=== PATIENT | female | born 1950 | race Caucasian/White ===

== ENCOUNTER 2022-04-17 17:54 | Inpatient (IN) | payer MEDICARE, BC ==
[2022-04-17] MEDS ORDERED: hydrALAZINE 20 MG/ML VIAL ONE (18:45)
[2022-04-17 19:05] LABS: INR-International Normal Ratio 1.9; Prothrombin Time 22.4 sec (12.0-14.7)
[2022-04-17 19:06] LABS: PTT 36.9 sec (22.9-36.1)
[2022-04-17] MEDS ORDERED: Ondansetron ODT 4 MG TAB PO PRN (22:13)
[2022-04-17] MEDS ORDERED: Acetaminophen 325 MG TAB PO PRN ×2 (22:13→22:30)
[2022-04-17] MEDS ORDERED: hydrALAZINE 20 MG/ML VIAL SLOW IVP PRN ×2 (22:13→22:15)
[2022-04-17] MEDS ORDERED: HumaLOG 300 UNITS/3 ML VIAL SC PRN (22:18)
[2022-04-17] MEDS ORDERED: Dextrose 5% in Water 1,000 ML IV PRN (22:18)
[2022-04-17] MEDS ORDERED: Dextrose 50% Abboject 50 ML SYRINGE SLOW IVP PRN (22:18)
[2022-04-17] MEDS ORDERED: Ondansetron ODT 4 MG TAB SL PRN (22:30)
[2022-04-17] MEDS ORDERED: Ondansetron PF 4 MG/2 ML Vial IVP PRN (22:30)
[2022-04-18 01:46] VITALS: BMI 43.2
[2022-04-18 01:50] LABS: #Eosinphils 0.2 thou/uL (0.0-0.7); #Lymphocytes 1.2 thou/uL (1.20-3.40); #Monocytes 0.5 thou/uL (0.11-0.59); #Neutrophils 3.7 thou/uL (1.40-6.50); %Basophils 0.3 % (0.0-1.0); %Eosinophils 4.4 % (0.0-10.0); %Lymphocytes 21.4 % (21.0-51.0); %Monocytes 8.7 % (0.0-10.0); %Neutrophils 65.1 % (42.0-75.0); Hemoglobin 13.6 g/dL (12.0-16.0); Mean Corpuscular HGB CONC 33.9 g/dL (32.0-36.0); Mean Corpuscular Hemoglobin 30.3 pg (27.0-31.0); Mean Corpuscular Volume 89.3 fL (78.0-98.0); Mean Platelet Volume 8.2 fL (7.4-10.4); Platelet Count 204 thou/uL (130-400); RBC Distribution Width 13.8 % (11.5-14.5); White Blood Cell (WBC) Count 5.6 thou/uL (4.8-10.8)
[2022-04-18 02:40] LABS: Hemoglobin A1c 8.4 % (4.0-6.0)
[2022-04-18 02:43] LABS: Anion Gap 15 mmol/L (10-20); BUN (Urea Nitrogen) 20 mg/dL (9.8-20.1); Calc. Creatinine Clearance 71 mL/min (70-130); Calcium 10.4 mg/dL (7.8-10.44); Carbon Dioxide 28 mmol/L (23-31); Cardiac Risk 3.3 (Less than 4.5); Chloride 99 mmol/L (98-107); Cholesterol 163 mg/dl (< 200 Desired); Estimated GFR 43; Glucose 259 mg/dL (80-115); HDL Cholesterol 50 mg/dL (>60 Neg Risk); LDL Cholesterol, Calculated 80 mg/dL; Magnesium 1.6 mg/dL (1.6-2.6); Potassium 4.2 mmol/L (3.5-5.1); Sodium 138 mmol/L (136-145); Triglycerides 163 mg/dL (Less than 150)
[2022-04-18] MEDS: Aspirin 81 mg Enteric Coated Tablet PO SCH (09:36)
[2022-04-18] MEDS ORDERED: Atorvastatin Calcium 20 MG TAB PO SCH (12:45)
[2022-04-18] MEDS ORDERED: NIFEdipine XL 30 MG TAB PO SCH (12:45)
[2022-04-18] MEDS ORDERED: Morphine 2 MG/ML VIAL SLOW IVP SCH (13:00)
[2022-04-18] MEDS ORDERED: HUMULIN R 100 UNITS in Sodium Chloride 0.9% 100 ML IVPB SCH (13:15)
[2022-04-18] MEDS ORDERED: Insulin Glargine 30 UNITS/0.3 ML VIAL SC SCH ×2 (13:30→20:00)
[2022-04-18] MEDS: HYDROcodone/Acetaminophen 5/325 mg Tablet PO SCH ×3 (13:58→18:05)
[2022-04-18] MEDS ORDERED: Gabapentin 300 MG CAP PO SCH ×2 (15:00)
[2022-04-18] MEDS ORDERED: Acetaminophen 500 MG TAB PO SCH (15:00)
[2022-04-18] MEDS: niCARdipine 25 MG in Sodium Chloride 0.9% 250 ML 250 ML IVPB SCH ×2 (15:33→19:46)
[2022-04-18] MEDS ORDERED: Warfarin Sodium 2.5 MG TAB PO SCH (17:00)
[2022-04-18] MEDS ORDERED: NIFEdipine XL 60 MG TAB PO SCH (21:00)
[2022-04-18] MEDS ORDERED: Rosuvastatin 20 MG TAB PO SCH (21:00)
[2022-04-18] MEDS: Atorvastatin Calcium 40 MG TAB PO SCH (21:00)
[2022-04-18] MEDS: NIFEdipine XL 30 MG TAB PO SCH (21:00)
[2022-04-18] MEDS: HumaLOG 300 UNITS/3 ML VIAL SC PRN (22:35)
[2022-04-19] MEDS: niCARdipine 25 MG in Sodium Chloride 0.9% 250 ML 250 ML IVPB SCH (03:15)
[2022-04-19 04:04] LABS: #Eosinphils 0.1 thou/uL (0.0-0.7); #Lymphocytes 0.9 thou/uL (1.20-3.40); #Monocytes 0.6 thou/uL (0.11-0.59); #Neutrophils 6.4 thou/uL (1.40-6.50); %Basophils 0.4 % (0.0-1.0); %Lymphocytes 11.4 % (21.0-51.0); %Monocytes 7.8 % (0.0-10.0); %Neutrophils 79.4 % (42.0-75.0); Hemoglobin 14.6 g/dL (12.0-16.0); Mean Corpuscular HGB CONC 33.4 g/dL (32.0-36.0); Mean Corpuscular Hemoglobin 29.9 pg (27.0-31.0); Mean Corpuscular Volume 89.5 fL (78.0-98.0); Mean Platelet Volume 8.3 fL (7.4-10.4); Platelet Count 218 thou/uL (130-400); Red Blood Cell (RBC) Count 4.88 mill/uL (4.20-5.40); White Blood Cell (WBC) Count 8.1 thou/uL (4.8-10.8)
[2022-04-19 04:27] LABS: Anion Gap 20 mmol/L (10-20); BUN (Urea Nitrogen) 30 mg/dL (9.8-20.1); Calc. Creatinine Clearance 56 mL/min (70-130); Calcium 9.7 mg/dL (7.8-10.44); Carbon Dioxide 23 mmol/L (23-31); Chloride 101 mmol/L (98-107); Estimated GFR 32; Glucose 365 mg/dL (80-115); Potassium 4.8 mmol/L (3.5-5.1); Sodium 139 mmol/L (136-145)
[2022-04-19] MEDS: HumaLOG 300 UNITS/3 ML VIAL SC PRN (04:34)
[2022-04-19 04:49] LABS: Prothrombin Time 22.7 sec (12.0-14.7)
[2022-04-19] MEDS ORDERED: HumaLOG 300 UNITS/3 ML VIAL SC PRN (08:49)
[2022-04-19] MEDS ORDERED: Dextrose 5% in Water 1,000 ML IV PRN (08:49)
[2022-04-19] MEDS ORDERED: Dextrose 50% Abboject 50 ML SYRINGE SLOW IVP PRN (08:49)
[2022-04-19] MEDS ORDERED: Insulin Glargine 30 UNITS/0.3 ML VIAL SC SCH ×4 (09:00→21:00)
[2022-04-19] MEDS ORDERED: Bupropion 150 MG XL TAB PO SCH (09:00)
[2022-04-19] MEDS ORDERED: Enoxaparin Sodium 40 MG/0.4 ML SYRINGE SC SCH (10:15)
[2022-04-19 10:22] LABS: Prothrombin Time 23.3 sec (12.0-14.7)
[2022-04-19 10:48] LABS: ALT (SGPT) 7 U/L (8-55); AST (SGOT) 9 U/L (5-34); Albumin 4.1 g/dL (3.4-4.8); Alkaline Phosphatase 101 U/L (40-110); Bilirubin, Direct 0.3 mg/dL (0.1-0.3); Bilirubin, Total 0.7 mg/dL (0.2-1.2); Protein, Total 7.8 g/dL (5.8-8.1)
[2022-04-19] MEDS: Aspirin 81 mg Enteric Coated Tablet PO SCH (10:50)
[2022-04-19] MEDS ORDERED: Midazolam HCl 2 mg/2 ml Vial ONE (11:03)
[2022-04-19] MEDS ORDERED: Midazolam HCl 2 mg/2 ml Vial SLOW IVP SCH (11:30)
[2022-04-19] MEDS: Lactated Ringer's 1,000 ML IV SCH ×2 (11:45→18:38)
[2022-04-19] MEDS ORDERED: levETIRAcetam 500 MG/5 ML VIAL SLOW IVP SCH (12:00)
[2022-04-19] MEDS: NIFEdipine XL 30 MG TAB PO SCH (12:02)
[2022-04-19] MEDS ORDERED: HUMULIN R 100 UNITS in Sodium Chloride 0.9% 100 ML IVPB SCH (13:15)
[2022-04-19] MEDS ORDERED: Midazolam HCl 2 mg/2 ml Vial SLOW IVP PRN (14:56)
[2022-04-19] MEDS: Carvedilol 6.25 MG TAB PO SCH (17:42)
[2022-04-19 17:49] LABS: Glucose 145 mg/dL (80-115)
[2022-04-19] MEDS: Atorvastatin Calcium 40 MG TAB PO SCH (20:15)
[2022-04-19 21:02] LABS: Anion Gap 17 mmol/L (10-20); BUN (Urea Nitrogen) 42 mg/dL (9.8-20.1); Calc. Creatinine Clearance 53 mL/min (70-130); Calcium 9.4 mg/dL (7.8-10.44); Carbon Dioxide 25 mmol/L (23-31); Chloride 105 mmol/L (98-107); Estimated GFR 30; Glucose 134 mg/dL (80-115); Potassium 4.5 mmol/L (3.5-5.1); Sodium 142 mmol/L (136-145)
[2022-04-19] MEDS: levETIRAcetam 500 MG/5 ML VIAL SLOW IVP SCH (21:08)
[2022-04-20 00:04] LABS: Anion Gap 16 mmol/L (10-20); BUN (Urea Nitrogen) 43 mg/dL (9.8-20.1); Calc. Creatinine Clearance 57 mL/min (70-130); Calcium 9.4 mg/dL (7.8-10.44); Carbon Dioxide 23 mmol/L (23-31); Chloride 107 mmol/L (98-107); Estimated GFR 32; Glucose 93 mg/dL (80-115); Sodium 142 mmol/L (136-145)
[2022-04-20] MEDS: Lactated Ringer's 1,000 ML IV SCH (02:31)
[2022-04-20 04:23] LABS: #Eosinphils 0.1 thou/uL (0.0-0.7); #Lymphocytes 1.6 thou/uL (1.20-3.40); #Monocytes 0.6 thou/uL (0.11-0.59); #Neutrophils 5.3 thou/uL (1.40-6.50); %Basophils 0.2 % (0.0-1.0); %Eosinophils 1.9 % (0.0-10.0); %Lymphocytes 20.5 % (21.0-51.0); %Monocytes 7.8 % (0.0-10.0); %Neutrophils 69.6 % (42.0-75.0); Hemoglobin 12.3 g/dL (12.0-16.0); Mean Corpuscular HGB CONC 32.8 g/dL (32.0-36.0); Mean Corpuscular Hemoglobin 29.8 pg (27.0-31.0); Mean Corpuscular Volume 90.9 fL (78.0-98.0); Mean Platelet Volume 8.3 fL (7.4-10.4); Platelet Count 208 thou/uL (130-400); RBC Distribution Width 14.1 % (11.5-14.5); Red Blood Cell (RBC) Count 4.14 mill/uL (4.20-5.40); White Blood Cell (WBC) Count 7.6 thou/uL (4.8-10.8)
[2022-04-20 04:31] LABS: INR-International Normal Ratio 2.4; Prothrombin Time 26.5 sec (12.0-14.7)
[2022-04-20 05:14] LABS: Anion Gap 18 mmol/L (10-20); BUN (Urea Nitrogen) 43 mg/dL (9.8-20.1); Calc. Creatinine Clearance 61 mL/min (70-130); Calcium 9.3 mg/dL (7.8-10.44); Carbon Dioxide 21 mmol/L (23-31); Chloride 106 mmol/L (98-107); Estimated GFR 34; Glucose 159 mg/dL (80-115); Sodium 141 mmol/L (136-145)
[2022-04-20] MEDS: niCARdipine 25 MG in Sodium Chloride 0.9% 250 ML 250 ML IVPB SCH ×2 (06:32→16:27)
[2022-04-20] MEDS ORDERED: Lactated Ringer's 1,000 ML IV SCH (08:14)
[2022-04-20] MEDS ORDERED: hydrALAZINE 20 MG/ML VIAL SLOW IVP PRN (08:41)
[2022-04-20] MEDS: Enoxaparin Sodium 40 MG/0.4 ML SYRINGE SC SCH (09:24)
[2022-04-20] MEDS: Carvedilol 6.25 MG TAB PO SCH ×2 (09:26→17:46)
[2022-04-20] MEDS: Aspirin 81 mg Enteric Coated Tablet PO SCH (09:26)
[2022-04-20] MEDS: Lactated Ringer's 500 ML IV SCH ×2 (09:26→14:11)
[2022-04-20] MEDS: levETIRAcetam 500 MG/5 ML VIAL SLOW IVP SCH ×2 (09:27→20:40)
[2022-04-20 11:22] LABS: Anion Gap 19 mmol/L (10-20); BUN (Urea Nitrogen) 41 mg/dL (9.8-20.1); Calc. Creatinine Clearance 65 mL/min (70-130); Calcium 9.5 mg/dL (7.8-10.44); Carbon Dioxide 21 mmol/L (23-31); Chloride 106 mmol/L (98-107); Estimated GFR 37; Glucose 218 mg/dL (80-115); Potassium 4.2 mmol/L (3.5-5.1); Sodium 142 mmol/L (136-145)
[2022-04-20] MEDS: NPH, Human Insulin Isophane 300 UNIT/3 ML VIAL SC SCH ×2 (12:13→17:46)
[2022-04-20] MEDS: hydrALAZINE 20 MG/ML VIAL SLOW IVP PRN (14:52)
[2022-04-20] MEDS: Atorvastatin Calcium 40 MG TAB PO SCH (20:40)
[2022-04-21] MEDS: NPH, Human Insulin Isophane 300 UNIT/3 ML VIAL SC SCH ×4 (00:19→18:39)
[2022-04-21] MEDS: hydrALAZINE 20 MG/ML VIAL SLOW IVP PRN ×2 (01:12→09:18)
[2022-04-21] MEDS: niCARdipine 25 MG in Sodium Chloride 0.9% 250 ML 250 ML IVPB SCH ×5 (02:37→22:27)
[2022-04-21 03:53] LABS: INR-International Normal Ratio 2.1; Prothrombin Time 23.7 sec (12.0-14.7)
[2022-04-21 03:58] LABS: #Eosinphils 0.3 thou/uL (0.0-0.7); #Lymphocytes 1.1 thou/uL (1.20-3.40); #Monocytes 0.8 thou/uL (0.11-0.59); #Neutrophils 6.1 thou/uL (1.40-6.50); %Basophils 0.2 % (0.0-1.0); %Eosinophils 3.9 % (0.0-10.0); %Lymphocytes 13.3 % (21.0-51.0); %Monocytes 9.9 % (0.0-10.0); %Neutrophils 72.7 % (42.0-75.0); Hemoglobin 12.9 g/dL (12.0-16.0); Mean Corpuscular HGB CONC 31.4 g/dL (32.0-36.0); Mean Corpuscular Hemoglobin 28.3 pg (27.0-31.0); Mean Corpuscular Volume 90.3 fL (78.0-98.0); Mean Platelet Volume 9.5 fL (7.4-10.4); Platelet Count 158 thou/uL (130-400); RBC Distribution Width 14.2 % (11.5-14.5); Red Blood Cell (RBC) Count 4.54 mill/uL (4.20-5.40); White Blood Cell (WBC) Count 8.4 thou/uL (4.8-10.8)
[2022-04-21 07:15] LABS: ALT (SGPT) 7 U/L (8-55); AST (SGOT) 11 U/L (5-34); Albumin 3.9 g/dL (3.4-4.8); Alkaline Phosphatase 85 U/L (40-110); Bilirubin, Direct 0.2 mg/dL (0.1-0.3); Bilirubin, Total 0.4 mg/dL (0.2-1.2); Protein, Total 7.3 g/dL (5.8-8.1)
[2022-04-21] MEDS: Carvedilol 6.25 MG TAB PO SCH ×2 (08:59→17:20)
[2022-04-21] MEDS: Enoxaparin Sodium 40 MG/0.4 ML SYRINGE SC SCH (09:20)
[2022-04-21] MEDS: levETIRAcetam 500 MG/5 ML VIAL SLOW IVP SCH ×2 (09:20→20:58)
[2022-04-21] MEDS: Aspirin 81 mg Enteric Coated Tablet PO SCH (09:26)
[2022-04-21] MEDS: Atorvastatin Calcium 40 MG TAB PO SCH (20:57)
[2022-04-22] MEDS: NPH, Human Insulin Isophane 300 UNIT/3 ML VIAL SC SCH ×3 (00:55→13:40)
[2022-04-22] MEDS: niCARdipine 25 MG in Sodium Chloride 0.9% 250 ML 250 ML IVPB SCH ×2 (02:06→06:51)
[2022-04-22 04:11] LABS: INR-International Normal Ratio 2.6; Prothrombin Time 28.4 sec (12.0-14.7)
[2022-04-22 05:19] LABS: #Eosinphils 0.6 thou/uL (0.0-0.7); #Lymphocytes 0.9 thou/uL (1.20-3.40); #Monocytes 0.6 thou/uL (0.11-0.59); #Neutrophils 6.2 thou/uL (1.40-6.50); %Basophils 0.2 % (0.0-1.0); %Eosinophils 7.5 % (0.0-10.0); %Lymphocytes 10.8 % (21.0-51.0); %Monocytes 7.6 % (0.0-10.0); Mean Corpuscular HGB CONC 32.1 g/dL (32.0-36.0); Mean Corpuscular Hemoglobin 29.5 pg (27.0-31.0); Mean Platelet Volume 8.6 fL (7.4-10.4); Platelet Count 201 thou/uL (130-400); Red Blood Cell (RBC) Count 4.42 mill/uL (4.20-5.40); White Blood Cell (WBC) Count 8.3 thou/uL (4.8-10.8)
[2022-04-22 05:44] LABS: Calcium 9.2 mg/dL (7.8-10.44); Chloride 114 mmol/L (98-107); Potassium 4.1 mmol/L (3.5-5.1); Sodium 148 mmol/L (136-145)
[2022-04-22 05:45] LABS: Glucose 95 mg/dL (80-115)
[2022-04-22 05:46] LABS: Anion Gap 16 mmol/L (10-20); Carbon Dioxide 22 mmol/L (23-31)
[2022-04-22 05:48] LABS: Calc. Creatinine Clearance 77 mL/min (70-130); Estimated GFR 46
[2022-04-22 05:49] LABS: BUN (Urea Nitrogen) 42 mg/dL (9.8-20.1)
[2022-04-22] MEDS: Aspirin Chewable 81 MG TAB PO SCH (08:11)
[2022-04-22] MEDS: Carvedilol 6.25 MG TAB PO SCH ×2 (08:11→16:42)
[2022-04-22] MEDS: Enoxaparin Sodium 40 MG/0.4 ML SYRINGE SC SCH (08:11)
[2022-04-22] MEDS: levETIRAcetam 500 MG/5 ML VIAL SLOW IVP SCH ×2 (08:11→22:21)
[2022-04-22] MEDS ORDERED: HumaLOG 300 UNITS/3 ML VIAL SC PRN (15:39)
[2022-04-22] MEDS: HumaLOG 300 UNITS/3 ML VIAL SC PRN (16:42)
[2022-04-22] MEDS: Atorvastatin Calcium 40 MG TAB PO SCH (22:22)
[2022-04-22] MEDS: Insulin Glargine 30 UNITS/0.3 ML VIAL SC SCH (22:22)
[2022-04-22] MEDS: Famotidine 20 MG TAB PO SCH (22:22)
[2022-04-23] MEDS: hydrALAZINE 20 MG/ML VIAL SLOW IVP PRN ×2 (00:25→09:02)
[2022-04-23] MEDS ORDERED: hydrALAZINE 20 MG/ML VIAL SLOW IVP SCH (02:30)
[2022-04-23 04:57] LABS: #Eosinphils 0.9 thou/uL (0.0-0.7); #Lymphocytes 1.1 thou/uL (1.20-3.40); #Monocytes 0.6 thou/uL (0.11-0.59); #Neutrophils 4.6 thou/uL (1.40-6.50); %Basophils 0.3 % (0.0-1.0); %Eosinophils 12.1 % (0.0-10.0); %Lymphocytes 15.4 % (21.0-51.0); %Monocytes 8.2 % (0.0-10.0); Hemoglobin 11.6 g/dL (12.0-16.0); Mean Corpuscular HGB CONC 32.4 g/dL (32.0-36.0); Mean Corpuscular Hemoglobin 29.5 pg (27.0-31.0); Mean Corpuscular Volume 91.1 fL (78.0-98.0); Mean Platelet Volume 8.7 fL (7.4-10.4); Platelet Count 186 thou/uL (130-400); RBC Distribution Width 13.6 % (11.5-14.5); Red Blood Cell (RBC) Count 3.94 mill/uL (4.20-5.40); White Blood Cell (WBC) Count 7.2 thou/uL (4.8-10.8)
[2022-04-23 05:04] LABS: INR-International Normal Ratio 2.5; Prothrombin Time 27.6 sec (12.0-14.7)
[2022-04-23 05:06] LABS: ALT (SGPT) 11 U/L (8-55); AST (SGOT) 13 U/L (5-34); Albumin 3.5 g/dL (3.4-4.8); Alkaline Phosphatase 92 U/L (40-110); Anion Gap 15 mmol/L (10-20); BUN (Urea Nitrogen) 34 mg/dL (9.8-20.1); Bilirubin, Direct 0.2 mg/dL (0.1-0.3); Bilirubin, Total 0.6 mg/dL (0.2-1.2); Calc. Creatinine Clearance 82 mL/min (70-130); Calcium 8.9 mg/dL (7.8-10.44); Carbon Dioxide 21 mmol/L (23-31); Chloride 105 mmol/L (98-107); Estimated GFR 50; Glucose 94 mg/dL (80-115); Potassium 3.7 mmol/L (3.5-5.1); Protein, Total 6.5 g/dL (5.8-8.1); Sodium 137 mmol/L (136-145)
[2022-04-23] MEDS: Famotidine 20 MG TAB PO SCH ×2 (09:01→22:02)
[2022-04-23] MEDS: levETIRAcetam 500 MG/5 ML VIAL SLOW IVP SCH ×2 (09:01→22:02)
[2022-04-23] MEDS: Carvedilol 6.25 MG TAB PO SCH ×2 (09:01→17:40)
[2022-04-23] MEDS: Enoxaparin Sodium 40 MG/0.4 ML SYRINGE SC SCH (09:01)
[2022-04-23] MEDS: Insulin Glargine 30 UNITS/0.3 ML VIAL SC SCH ×2 (09:02→22:02)
[2022-04-23] MEDS: Aspirin Chewable 81 MG TAB PO SCH (09:02)
[2022-04-23] MEDS ORDERED: Acetaminophen 500 MG TAB PO PRN (11:29)
[2022-04-23 11:32] LABS: Glucose 122 mg/dL (80-115)
[2022-04-23] MEDS ORDERED: Allopurinol 300 MG TAB PO SCH (13:45)
[2022-04-23] MEDS: HumaLOG 300 UNITS/3 ML VIAL SC PRN (17:40)
[2022-04-23] MEDS: Atorvastatin Calcium 40 MG TAB PO SCH (22:02)
[2022-04-24] MEDS: hydrALAZINE 20 MG/ML VIAL SLOW IVP PRN ×3 (04:13→23:30)
[2022-04-24 04:32] LABS: #Eosinphils 0.7 thou/uL (0.0-0.7); #Lymphocytes 1.3 thou/uL (1.20-3.40); #Monocytes 0.5 thou/uL (0.11-0.59); #Neutrophils 3.3 thou/uL (1.40-6.50); %Basophils 0.2 % (0.0-1.0); %Eosinophils 11.7 % (0.0-10.0); %Lymphocytes 21.9 % (21.0-51.0); %Monocytes 9.4 % (0.0-10.0); %Neutrophils 56.8 % (42.0-75.0); Hemoglobin 11.5 g/dL (12.0-16.0); Mean Corpuscular HGB CONC 32.2 g/dL (32.0-36.0); Mean Corpuscular Hemoglobin 29.7 pg (27.0-31.0); Mean Corpuscular Volume 92.2 fL (78.0-98.0); Mean Platelet Volume 9.1 fL (7.4-10.4); Platelet Count 185 thou/uL (130-400); RBC Distribution Width 13.3 % (11.5-14.5); Red Blood Cell (RBC) Count 3.87 mill/uL (4.20-5.40); White Blood Cell (WBC) Count 5.7 thou/uL (4.8-10.8)
[2022-04-24 04:42] LABS: INR-International Normal Ratio 1.4; Prothrombin Time 17.2 sec (12.0-14.7)
[2022-04-24 05:08] LABS: Anion Gap 15 mmol/L (10-20); BUN (Urea Nitrogen) 31 mg/dL (9.8-20.1); Calc. Creatinine Clearance 70 mL/min (70-130); Calcium 9.1 mg/dL (7.8-10.44); Carbon Dioxide 21 mmol/L (23-31); Chloride 105 mmol/L (98-107); Estimated GFR 41; Glucose 219 mg/dL (80-115); Sodium 137 mmol/L (136-145)
[2022-04-24] MEDS: HumaLOG 300 UNITS/3 ML VIAL SC PRN ×2 (05:53→16:47)
[2022-04-24] MEDS ORDERED: Lisinopril 10 MG TAB PO SCH (09:00)
[2022-04-24] MEDS: Famotidine 20 MG TAB PO SCH ×2 (09:22→20:37)
[2022-04-24] MEDS: Carvedilol 6.25 MG TAB PO SCH ×2 (09:22→16:49)
[2022-04-24] MEDS: Aspirin Chewable 81 MG TAB PO SCH (09:22)
[2022-04-24] MEDS: Allopurinol 300 MG TAB PO SCH (09:23)
[2022-04-24] MEDS: Insulin Glargine 30 UNITS/0.3 ML VIAL SC SCH ×2 (09:23→20:37)
[2022-04-24] MEDS: Enoxaparin Sodium 40 MG/0.4 ML SYRINGE SC SCH (09:23)
[2022-04-24] MEDS: levETIRAcetam 500 MG/5 ML VIAL SLOW IVP SCH (10:34)
[2022-04-24] MEDS: predniSONE 20 MG TAB PO SCH (10:35)
[2022-04-24] MEDS ORDERED: traMADol HCl 50 MG TAB PO PRN (16:32)
[2022-04-24] MEDS: Atorvastatin Calcium 40 MG TAB PO SCH (20:37)
[2022-04-24] MEDS: levETIRAcetam 500 MG TAB PO SCH (20:37)
[2022-04-25 04:34] LABS: #Eosinphils 0.1 thou/uL (0.0-0.7); #Lymphocytes 0.8 thou/uL (1.20-3.40); #Monocytes 0.4 thou/uL (0.11-0.59); #Neutrophils 3.8 thou/uL (1.40-6.50); %Basophils 0.3 % (0.0-1.0); %Eosinophils 1.2 % (0.0-10.0); %Lymphocytes 16.1 % (21.0-51.0); %Monocytes 7.4 % (0.0-10.0); Hemoglobin 11.3 g/dL (12.0-16.0); Mean Corpuscular HGB CONC 33.2 g/dL (32.0-36.0); Mean Corpuscular Hemoglobin 30.2 pg (27.0-31.0); Mean Corpuscular Volume 91.1 fL (78.0-98.0); Mean Platelet Volume 9.1 fL (7.4-10.4); Platelet Count 205 thou/uL (130-400); RBC Distribution Width 13.2 % (11.5-14.5); Red Blood Cell (RBC) Count 3.73 mill/uL (4.20-5.40); White Blood Cell (WBC) Count 5.1 thou/uL (4.8-10.8)
[2022-04-25 04:57] LABS: Anion Gap 14 mmol/L (10-20); BUN (Urea Nitrogen) 32 mg/dL (9.8-20.1); Calc. Creatinine Clearance 66 mL/min (70-130); Carbon Dioxide 22 mmol/L (23-31); Chloride 101 mmol/L (98-107); Estimated GFR 39; Glucose 385 mg/dL (80-115); Potassium 4.6 mmol/L (3.5-5.1); Sodium 132 mmol/L (136-145)
[2022-04-25 05:01] LABS: INR-International Normal Ratio 1.1; Prothrombin Time 14.2 sec (12.0-14.7)
[2022-04-25] MEDS: HumaLOG 300 UNITS/3 ML VIAL SC PRN ×2 (06:07→13:13)
[2022-04-25] MEDS ORDERED: Lisinopril 10 MG TAB PO SCH (08:03)
[2022-04-25] MEDS: Enoxaparin Sodium 40 MG/0.4 ML SYRINGE SC SCH (08:43)
[2022-04-25] MEDS: levETIRAcetam 500 MG TAB PO SCH (08:43)
[2022-04-25] MEDS: Insulin Glargine 30 UNITS/0.3 ML VIAL SC SCH (08:43)
[2022-04-25] MEDS: Allopurinol 300 MG TAB PO SCH (08:44)
[2022-04-25] MEDS: Famotidine 20 MG TAB PO SCH (08:44)
[2022-04-25] MEDS: Carvedilol 6.25 MG TAB PO SCH (08:45)
[2022-04-25] MEDS: Aspirin Chewable 81 MG TAB PO SCH (08:45)
[2022-04-25] MEDS ORDERED: Amlodipine 5 MG TAB PO SCH (09:00)
[2022-04-25] MEDS ORDERED: Lisinopril 20 MG TAB PO SCH (09:00)
[2022-04-25] MEDS: predniSONE 20 MG TAB PO SCH (09:33)
[2022-04-25 11:51] VITALS: BP 148/65; TEMP 97.8
== END 2022-04-25 13:24 | DRG 71 ==
LOC: ERS 17:54 → ERHOLD 19:09 → NEURO 22:04 → OBSVTOIN 04-18 13:09 → CCU 04-18 15:11 → 2NO 04-22 20:25
PROVIDERS: ADMIT Internal Medicine; ATTEND Family Medicine
DX: G93.41 Metabolic encephalopathy (principal); I13.0 Hypertensive heart and chronic kidney disease with heart failure and stage 1 through stage 4 chronic kidney disease, or unspecified chronic kidney disease; I16.1 Hypertensive emergency; N18.4 Chronic kidney disease, stage 4 (severe); J96.11 Chronic respiratory failure with hypoxia; I50.22 Chronic systolic (congestive) heart failure; I42.9 Cardiomyopathy, unspecified; E78.5 Hyperlipidemia, unspecified; I48.91 Unspecified atrial fibrillation; F32.A Depression, unspecified; J44.9 Chronic obstructive pulmonary disease, unspecified; G89.29 Other chronic pain; E11.22 Type 2 diabetes mellitus with diabetic chronic kidney disease; E11.65 Type 2 diabetes mellitus with hyperglycemia; I12.9 Hypertensive chronic kidney disease with stage 1 through stage 4 chronic kidney disease, or unspecified chronic kidney disease; I25.10 Atherosclerotic heart disease of native coronary artery without angina pectoris; E11.40 Type 2 diabetes mellitus with diabetic neuropathy, unspecified; M10.9 Gout, unspecified; T42.6X5A Adverse effect of other antiepileptic and sedative-hypnotic drugs, initial encounter; T42.8X5A Adverse effect of antiparkinsonism drugs and other central muscle-tone depressants, initial encounter; R56.9 Unspecified convulsions; F03.90 Unspecified dementia, unspecified severity, without behavioral disturbance, psychotic disturbance, mood disturbance, and anxiety; Z96.653 Presence of artificial knee joint, bilateral; Z79.899 Other long term (current) drug therapy; I25.2 Old myocardial infarction; Z99.81 Dependence on supplemental oxygen; Z86.73 Personal history of transient ischemic attack (TIA), and cerebral infarction without residual deficits; Z87.440 Personal history of urinary (tract) infections; Z88.2 Allergy status to sulfonamides; Z95.5 Presence of coronary angioplasty implant and graft; Z95.1 Presence of aortocoronary bypass graft; Z98.1 Arthrodesis status; Z98.890 Other specified postprocedural states; Z82.49 Family history of ischemic heart disease and other diseases of the circulatory system; Z87.891 Personal history of nicotine dependence; Z79.4 Long term (current) use of insulin; Z86.16 Personal history of COVID-19
CPT/HCPCS: 36415; 36416; 70450; 80048; 80061; 80076; 82140; 82947; 83036; 83735; 84443; 84484; 85025; 85610; 93306; 93880; 95712; 95816; 95819; 95957; 96374; 96376; G0378; J0360; J1650; J1815; J1953; J2250; J2270; J7050; J7120; J7512; U0003; U0005

== ENCOUNTER 2022-05-06 14:50 | Inpatient (IN) | payer MEDICARE, BC ==
[2022-05-06 15:26] LABS: #Eosinphils 0.2 thou/uL (0.0-0.7); #Lymphocytes 1.4 thou/uL (1.20-3.40); #Monocytes 0.4 thou/uL (0.11-0.59); #Neutrophils 4.4 thou/uL (1.40-6.50); %Basophils 0.3 % (0.0-1.0); %Lymphocytes 22.1 % (21.0-51.0); %Monocytes 6.5 % (0.0-10.0); Hemoglobin 13.5 g/dL (12.0-16.0); Mean Corpuscular HGB CONC 33.3 g/dL (32.0-36.0); Mean Corpuscular Hemoglobin 29.8 pg (27.0-31.0); Mean Corpuscular Volume 89.3 fL (78.0-98.0); Mean Platelet Volume 9.1 fL (7.4-10.4); Platelet Count 193 thou/uL (130-400); RBC Distribution Width 12.7 % (11.5-14.5); Red Blood Cell (RBC) Count 4.53 mill/uL (4.20-5.40); White Blood Cell (WBC) Count 6.5 thou/uL (4.8-10.8)
[2022-05-06 15:50] LABS: ALT (SGPT) 15 U/L (8-55); AST (SGOT) 13 U/L (5-34); Acetaminophen Less than 10.0 mcg/mL (10.0-30.0); Albumin 4.1 g/dL (3.4-4.8); Alcohol Less than 10 mg/dL (Less than 10); Alkaline Phosphatase 98 U/L (40-110); Anion Gap 18 mmol/L (10-20); BUN (Urea Nitrogen) 21 mg/dL (9.8-20.1); Bilirubin, Total 0.9 mg/dL (0.2-1.2); Calc. Creatinine Clearance 0 mL/min (70-130); Carbon Dioxide 26 mmol/L (23-31); Chloride 95 mmol/L (98-107); Estimated GFR 39; Globulin 3.5 g/dL (2.4-3.5); Glucose 429 mg/dL (80-115); Magnesium 1.3 mg/dL (1.6-2.6); Potassium 4.8 mmol/L (3.5-5.1); Protein, Total 7.6 g/dL (5.8-8.1); Salicylate Less than 8.0 mg/dL (15.0-30.0); Sodium 134 mmol/L (136-145)
[2022-05-06 15:52] LABS: Phosphorus 3.1 mg/dL (2.3-4.7)
[2022-05-06 16:33] LABS: CKMB 2.5 ng/mL (0-6.6)
[2022-05-06 16:34] LABS: INR-International Normal Ratio 1.1; Prothrombin Time 13.8 sec (12.0-14.7)
[2022-05-06] MEDS ORDERED: Magnesium 2 GM/50 ML BAG (IN WATER) ONE (16:58)
[2022-05-06 16:59] LABS: Bacteria/HPF None Seen HPF (None Seen); Bilirubin Negative (Negative); Blood, Urine Negative (Negative); Clarity Clear (Clear); Glucose, Urine (Dipstick) Greater than 1000 mg/dL (Negative); Ketone, Urine Negative (Negative); Leukocyte Negative Leu/uL (Negative); Nitrite Negative (Negative); Protein, Urine (Dipstick) 100 mg/dL (Neg-Trace); RBC/HPF 0-3 HPF (0-3); Specific Gravity, Urine 1.024 (1.002-1.036); Squamous Epithelial None Seen HPF (0-3); Urobilinogen Normal mg/dL (Less than 2); WBC/HPF 0-3 HPF (0-3)
[2022-05-06 17:07] LABS: Amphetamine Not Detected (NotDetected); Barbiturates Screen Not Detected (NotDetected); Benzodiazepine Screen Not Detected (NotDetected); Cocaine Metabolite Screen Not Detected (NotDetected); Methadone Not Detected (NotDetected); Methamphetamine Not Detected (NotDetected); Opiate Screen Not Detected (NotDetected); Oxycodone Screen Not Detected (NotDetected); Phencyclidine (PCP) Not Detected (NotDetected); THC/Cannabinoid Screen Not Detected (NotDetected); Tricyclic Screen Detected (NotDetected)
[2022-05-06] MEDS ORDERED: hydrALAZINE 20 MG/ML VIAL ONE (17:48)
[2022-05-06 17:59] LABS: SARS-CoV-2 NAA Rapid Test Not Detected (NotDetected)
[2022-05-06] MEDS ORDERED: Insulin Glargine 30 UNITS/0.3 ML VIAL SC SCH (18:30)
[2022-05-06] MEDS ORDERED: levETIRAcetam 500 MG/5 ML VIAL ONE (20:56)
[2022-05-07] MEDS ORDERED: Dextrose 5% in Water 1,000 ML IV PRN (04:15)
[2022-05-07] MEDS ORDERED: HumaLOG 300 UNITS/3 ML VIAL SC PRN (04:15)
[2022-05-07] MEDS ORDERED: Dextrose 50% Abboject 50 ML SYRINGE SLOW IVP PRN (04:15)
[2022-05-07] MEDS ORDERED: hydrALAZINE 20 MG/ML VIAL SLOW IVP PRN (04:16)
[2022-05-07] MEDS ORDERED: hydrALAZINE 20 MG/ML VIAL ONE (04:42)
[2022-05-07] MEDS: HumaLOG 300 UNITS/3 ML VIAL SC PRN ×4 (04:45→17:33)
[2022-05-07] MEDS ORDERED: Electrolyte Replacement Protocol 1 EACH FS SCH (05:00)
[2022-05-07] MEDS ORDERED: Acetaminophen 650 MG Suppository PR PRN (05:12)
[2022-05-07] MEDS ORDERED: Ondansetron ODT 4 MG TAB PO PRN (05:12)
[2022-05-07] MEDS ORDERED: Acetaminophen 325 MG TAB PO PRN (05:12)
[2022-05-07] MEDS ORDERED: Ondansetron PF 4 MG/2 ML Vial IVP PRN (05:12)
[2022-05-07 05:16] VITALS: BMI 39.4
[2022-05-07 05:55] LABS: Anion Gap 17 mmol/L (10-20); BUN (Urea Nitrogen) 20 mg/dL (9.8-20.1); Calc. Creatinine Clearance 63 mL/min (70-130); Calcium 9.8 mg/dL (7.8-10.44); Carbon Dioxide 26 mmol/L (23-31); Chloride 97 mmol/L (98-107); Estimated GFR 40; Glucose 407 mg/dL (80-115); Magnesium 1.8 mg/dL (1.6-2.6); Potassium 4.2 mmol/L (3.5-5.1); Sodium 136 mmol/L (136-145)
[2022-05-07] MEDS ORDERED: Insulin Glargine 30 UNITS/0.3 ML VIAL SC SCH (07:00)
[2022-05-07 08:02] LABS: Glucose 337 mg/dL (80-115)
[2022-05-07] MEDS ORDERED: levETIRAcetam 500 MG TAB PO SCH (09:00)
[2022-05-07] MEDS ORDERED: Magnesium 2 GM/50 ML(in water) 2 GM in Premix Bag 1 BAG IVPB SCH (11:00)
[2022-05-07 12:22] LABS: Glucose 324 mg/dL (80-115)
[2022-05-07 17:12] LABS: Glucose 361 mg/dL (80-115)
[2022-05-07] MEDS: Carvedilol 6.25 MG TAB PO SCH (17:33)
[2022-05-07] MEDS ORDERED: Atorvastatin Calcium 40 MG TAB PO SCH (21:00)
[2022-05-07] MEDS: levETIRAcetam 500 MG TAB PO SCH (21:50)
[2022-05-07] MEDS ORDERED: Melatonin 3 MG TAB PO PRN (22:17)
[2022-05-08 05:41] LABS: Magnesium 2.1 mg/dL (1.6-2.6)
[2022-05-08] MEDS: HumaLOG 300 UNITS/3 ML VIAL SC PRN ×3 (05:56→11:26)
[2022-05-08] MEDS ORDERED: Ferrous Sulfate 325 MG TAB PO SCH (08:00)
[2022-05-08 08:07] LABS: Glucose 325 mg/dL (80-115)
[2022-05-08] MEDS ORDERED: Non-Formulary Item 1 EACH (Ferrous Sulfate [Ferrous Sulfate] 325 MG Tab) PO SCH (09:00)
[2022-05-08] MEDS ORDERED: Aspirin 81 mg Enteric Coated Tablet PO SCH (09:00)
[2022-05-08] MEDS ORDERED: Insulin Glargine 30 UNITS/0.3 ML VIAL SC SCH ×2 (09:00)
[2022-05-08] MEDS ORDERED: Allopurinol 300 MG TAB PO SCH (09:00)
[2022-05-08] MEDS: levETIRAcetam 500 MG TAB PO SCH (09:11)
[2022-05-08] MEDS: Carvedilol 6.25 MG TAB PO SCH (09:13)
[2022-05-08] MEDS ORDERED: Warfarin Sodium 2.5 MG TAB PO SCH (10:00)
[2022-05-08] MEDS ORDERED: Enoxaparin Sodium 120 MG/0.8 ML SYRINGE SC SCH (10:00)
[2022-05-08] MEDS ORDERED: Warfarin Sodium 3.75 MG HALF.TAB PO SCH ×3 (10:00→17:00)
[2022-05-08 11:25] LABS: Prothrombin Time 13.4 sec (12.0-14.7)
[2022-05-08 11:31] LABS: Glucose 362 mg/dL (80-115)
[2022-05-08 16:58] VITALS: BP 114/70; TEMP 98.2
[2022-05-08] MEDS ORDERED: Enoxaparin Sodium 100 MG/ML SYRINGE SC SCH (21:00)
[2022-05-09] MEDS ORDERED: Warfarin Sodium 2.5 MG TAB PO SCH ×2 (17:00)
[2022-05-11] MEDS ORDERED: Warfarin Sodium 3.75 MG HALF.TAB PO SCH (17:00)
== END 2022-05-08 16:43 | disposition home or self-care (01) | DRG 100 ==
LOC: ERS 14:50 → NEURO 05-07 00:25 → OBSVTOIN 05-08 16:16
PROVIDERS: ADMIT Internal Medicine; ATTEND Internal Medicine
DX: R56.9 Unspecified convulsions (principal); I50.23 Acute on chronic systolic (congestive) heart failure; I13.0 Hypertensive heart and chronic kidney disease with heart failure and stage 1 through stage 4 chronic kidney disease, or unspecified chronic kidney disease; I48.19 Other persistent atrial fibrillation; G93.49 Other encephalopathy; Z20.822 Contact with and (suspected) exposure to COVID-19; E11.22 Type 2 diabetes mellitus with diabetic chronic kidney disease; E78.5 Hyperlipidemia, unspecified; E66.9 Obesity, unspecified; N18.31 Chronic kidney disease, stage 3a; J44.9 Chronic obstructive pulmonary disease, unspecified; G93.89 Other specified disorders of brain; R40.4 Transient alteration of awareness; Z91.041 Radiographic dye allergy status; Z88.0 Allergy status to penicillin; Z88.1 Allergy status to other antibiotic agents; Z88.8 Allergy status to other drugs, medicaments and biological substances; Z79.82 Long term (current) use of aspirin; Z79.51 Long term (current) use of inhaled steroids; Z79.899 Other long term (current) drug therapy; Z79.02 Long term (current) use of antithrombotics/antiplatelets; Z79.4 Long term (current) use of insulin; Z68.39 Body mass index [BMI] 39.0-39.9, adult
CPT/HCPCS: 36415; 36416; 70450; 80053; 80306; 80307; 81003; 81015; 82010; 82140; 82553; 82947; 83690; 83735; 84100; 84484; 85025; 85610; 93005; 94760; 95712; 95819; 95957; 96376; G0378; J0360; J1650; J1815; J1953; J3475; U0002

== ENCOUNTER 2022-08-26 09:33 | Observation (INO) | payer MEDICARE, BC ==
[2022-08-26] MEDS ORDERED: LORazepam 2 MG/ML SYR.(CARPUJECT) ONE ×2 (10:09→18:38)
[2022-08-26] MEDS ORDERED: levETIRAcetam 500 MG/5 ML VIAL ONE (10:35)
[2022-08-26 10:41] LABS: Bacteria/HPF None Seen HPF (None Seen); Bilirubin Negative (Negative); Blood, Urine Negative (Negative); Clarity Clear (Clear); Glucose, Urine (Dipstick) 300 mg/dL (Negative); Ketone, Urine Trace mg/dL (Negative); Leukocyte Negative Leu/uL (Negative); Nitrite Negative (Negative); Protein, Urine (Dipstick) 50 mg/dL (Neg-Trace); RBC/HPF 0-3 HPF (0-3); Specific Gravity, Urine 1.014 (1.002-1.036); Squamous Epithelial None Seen HPF (0-3); Urobilinogen Normal mg/dL (Less than 2); WBC/HPF 0-3 HPF (0-3); pH, Urine 6.5 (5.0-9.0)
[2022-08-26 10:51] LABS: Amphetamine Not Detected (NotDetected); Barbiturates Screen Not Detected (NotDetected); Benzodiazepine Screen Not Detected (NotDetected); Cocaine Metabolite Screen Not Detected (NotDetected); Methadone Not Detected (NotDetected); Methamphetamine Not Detected (NotDetected); Opiate Screen Not Detected (NotDetected); Oxycodone Screen Not Detected (NotDetected); Phencyclidine (PCP) Not Detected (NotDetected); THC/Cannabinoid Screen Detected (NotDetected); Tricyclic Screen Not Detected (NotDetected)
[2022-08-26 11:01] LABS: #Eosinphils 0.1 thou/uL (0.0-0.7); #Lymphocytes 1.5 thou/uL (1.20-3.40); #Monocytes 0.5 thou/uL (0.11-0.59); #Neutrophils 6.1 thou/uL (1.40-6.50); %Eosinophils 1.7 % (0.0-10.0); %Lymphocytes 17.7 % (21.0-51.0); %Monocytes 6.3 % (0.0-10.0); %Neutrophils 74.2 % (42.0-75.0); Mean Corpuscular HGB CONC 32.3 g/dL (32.0-36.0); Mean Corpuscular Hemoglobin 28.8 pg (27.0-31.0); Mean Corpuscular Volume 88.9 fl (78.0-98.0); Mean Platelet Volume 8.8 fL (7.4-10.4); Platelet Count 207 10x3/uL (130-400); RBC Distribution Width 12.4 % (11.5-14.5); Red Blood Cell (RBC) Count 4.87 mill/uL (4.20-5.40); White Blood Cell (WBC) Count 8.3 10x3/uL (4.8-10.8)
[2022-08-26 11:26] LABS: ALT (SGPT) 16 U/L (8-55); AST (SGOT) 20 U/L (5-34); Albumin 4.3 g/dL (3.4-4.8); Alkaline Phosphatase 68 U/L (40-110); Anion Gap 20 mmol/L (10-20); BUN (Urea Nitrogen) 30 mg/dL (9.8-20.1); Bilirubin, Total 0.4 mg/dL (0.2-1.2); CK (CPK) 91 U/L (29-168); Calc. Creatinine Clearance 0 mL/min (70-130); Calcium 10.2 mg/dL (7.8-10.44); Carbon Dioxide 21 mmol/L (23-31); Chloride 102 mmol/L (98-107); Estimated GFR 35; Globulin 3.3 g/dL (2.4-3.5); Glucose 258 mg/dL (80-115); Lipase 158 U/L (8-78); Potassium 4.7 mmol/L (3.5-5.1); Protein, Total 7.6 g/dL (5.8-8.1); Sodium 138 mmol/L (136-145)
[2022-08-26 11:33] LABS: Acetaminophen Less than 10.0 mcg/mL (10.0-30.0); Alcohol Less than 10 mg/dL (Less than 10); Salicylate Less than 8.0 mg/dL (15.0-30.0)
[2022-08-26 12:03] LABS: SARS-CoV-2 NAA Rapid Test Not Detected (NotDetected)
[2022-08-26] MEDS ORDERED: Haloperidol Lactate 5 MG/ML VIAL ONE (12:04)
[2022-08-26] MEDS ORDERED: diphenhydrAMINE 50 MG/ML VIAL ONE (12:04)
[2022-08-26] MEDS ORDERED: hydrALAZINE 20 MG/ML VIAL ONE (13:09)
[2022-08-26] MEDS ORDERED: Acetaminophen 325 MG TAB PO PRN (14:27)
[2022-08-26] MEDS ORDERED: Lorazepam 2 MG/ML VIAL SLOW IVP PRN (14:29)
[2022-08-26] MEDS ORDERED: hydrALAZINE 20 MG/ML VIAL SLOW IVP PRN (14:29)
[2022-08-26 15:46] VITALS: TEMP 96.9
[2022-08-26 16:11] LABS: Prothrombin Time 32.7 sec (12.0-14.7)
[2022-08-26 20:01] VITALS: BP 144/65
[2022-08-26] MEDS ORDERED: Atorvastatin Calcium 40 MG TAB PO SCH (21:00)
[2022-08-26] MEDS ORDERED: levETIRAcetam 500 MG TAB PO SCH ×2 (21:00)
[2022-08-27] MEDS ORDERED: Aspirin 81 mg Enteric Coated Tablet PO SCH (09:00)
== END 2022-08-26 21:24 | disposition short-term general hospital (02) ==
LOC: ERS 09:33 → INTOOBSV 12:44 → ERHOLD 12:44 → OBSVTOIN 14:32 → INTOOBSV 14:32
PROVIDERS: ADMIT Hospitalist; ATTEND Hospitalist
DX: R40.4 Transient alteration of awareness (principal); R53.1 Weakness; I16.0 Hypertensive urgency; R56.9 Unspecified convulsions; G89.29 Other chronic pain; M54.50 Low back pain, unspecified; I13.0 Hypertensive heart and chronic kidney disease with heart failure and stage 1 through stage 4 chronic kidney disease, or unspecified chronic kidney disease; E11.22 Type 2 diabetes mellitus with diabetic chronic kidney disease; N18.31 Chronic kidney disease, stage 3a; I50.20 Unspecified systolic (congestive) heart failure; E78.5 Hyperlipidemia, unspecified; I48.19 Other persistent atrial fibrillation; Z86.711 Personal history of pulmonary embolism; Z79.01 Long term (current) use of anticoagulants; Z79.4 Long term (current) use of insulin; Z79.82 Long term (current) use of aspirin; Z79.899 Other long term (current) drug therapy; Z88.0 Allergy status to penicillin; Z88.2 Allergy status to sulfonamides; Z88.8 Allergy status to other drugs, medicaments and biological substances; Z91.041 Radiographic dye allergy status; Z95.0 Presence of cardiac pacemaker; Z20.822 Contact with and (suspected) exposure to COVID-19
CPT/HCPCS: 51701; 70450; 71045; 80306; 80307; 82140; 82550; 83605; 83690; 83880; 84146; 84484; 85610; 87040; 87086; 87804 ×2; 93005; 96361; 96365; 96375; 96376; 99285; J1953; J2060; U0002; 36415; 80053; 81003; 81015; 84443; 85025; J0360; J1200; J1630

== ENCOUNTER 2024-09-16 04:06 | Observation (INO) | payer MEDICARE, BC ==
[2024-09-16] MEDS ORDERED: Acetaminophen 650 MG Suppository PR PRN (04:21)
[2024-09-16] MEDS ORDERED: Calcium Carbonate 500 MG ChewTAB PO PRN (04:21)
[2024-09-16] MEDS ORDERED: Acetaminophen 325 MG TAB PO PRN (04:21)
[2024-09-16] MEDS ORDERED: Ondansetron PF 4 MG/2 ML Vial IVP PRN (04:21)
[2024-09-16 04:27] VITALS: BMI 39.1
[2024-09-16 05:29] LABS: #Basophils 0.04 10x3/uL (0.0-0.2); %Basophils 0.5 % (0.0-1.0); %Eosinophils 1.5 % (0.0-10.0); %Lymphocytes 23.4 % (21.0-51.0); %Monocytes 11.2 % (0.0-10.0); %Neutrophils 62.9 % (42.0-75.0); Hematocrit 35.7 % (36.0-47.0); Hemoglobin 11.9 g/dL (12.0-16.0); Mean Corpuscular HGB CONC 33.3 g/dL (32.0-36.0); Mean Corpuscular Hemoglobin 28.5 pg (27.0-31.0); Mean Corpuscular Volume 85.4 fL (78.0-98.0); Mean Platelet Volume 10.7 fL (7.4-10.4); Platelet Count 206 10x3/uL (130-400); RBC Distribution Width 13.3 % (11.5-14.5); Red Blood Cell (RBC) Count 4.18 mill/uL (4.20-5.40)
[2024-09-16] MEDS ORDERED: traMADol HCl 50 MG TAB PO PRN (05:32)
[2024-09-16] MEDS ORDERED: Dextrose 50% Abboject 50 ML SYRINGE SLOW IVP PRN (05:34)
[2024-09-16] MEDS ORDERED: Dextrose 5% in Water 1,000 ML IV PRN (05:34)
[2024-09-16] MEDS ORDERED: Glucagon 1 MG/ML KIT IM PRN (05:34)
[2024-09-16 05:48] LABS: ALT (SGPT) 13 U/L (8-55); AST (SGOT) 14 U/L (5-34); Albumin 3.9 g/dL (3.4-4.8); Alkaline Phosphatase 82 U/L (40-110); Anion Gap 16 mmol/L (10-20); BUN (Urea Nitrogen) 41 mg/dL (9.8-20.1); Bilirubin, Total 0.2 mg/dL (0.2-1.2); Calc. Creatinine Clearance 55 mL/min (70-130); Calcium 9.5 mg/dL (7.8-10.44); Carbon Dioxide 26 mmol/L (23-31); Chloride 96 mmol/L (98-107); Estimated GFR 34; Globulin 3.4 g/dL (2.4-3.5); Glucose 320 mg/dL (83-110); Potassium 3.8 mmol/L (3.5-5.1); Protein, Total 7.3 g/dL (5.8-8.1); Sodium 134 mmol/L (136-145)
[2024-09-16 06:05] LABS: Hemoglobin A1c 9.3 % (4.0-6.0)
[2024-09-16 06:09] LABS: INR-International Normal Ratio 2.4; Prothrombin Time 25.9 sec (12.0-14.7)
[2024-09-16] MEDS: Insulin Lispro 100 UNIT/ML 10 ML VIAL SC PRN ×2 (06:45→20:03)
[2024-09-16] MEDS: Allopurinol 300 MG TAB PO SCH (08:27)
[2024-09-16] MEDS: Torsemide 20 MG TAB PO SCH (08:27)
[2024-09-16] MEDS: Cholecalciferol 1,000 UNITS (25 MCG) TAB PO SCH (08:27)
[2024-09-16] MEDS: Rosuvastatin 20 MG TAB PO SCH (08:28)
[2024-09-16] MEDS: hydrALAZINE 25 MG TAB PO SCH (08:28)
[2024-09-16] MEDS: Isosorbide Mononitrate 60 MG ER.TAB PO SCH (08:28)
[2024-09-16] MEDS: Carvedilol 6.25 MG TAB PO SCH (08:28)
[2024-09-16] MEDS: Ondansetron ODT 4 MG TAB PO PRN (08:28)
[2024-09-16] MEDS: levETIRAcetam 500 MG TAB PO SCH (08:28)
[2024-09-16] MEDS: Cyclobenzaprine 10 MG TAB PO SCH (08:28)
[2024-09-16] MEDS: Famotidine 20 MG TAB PO SCH (08:28)
[2024-09-16] MEDS: Famotidine/PF 20 mg/2ml Vial SLOW IVP SCH (08:29)
[2024-09-16] MEDS: Escitalopram Oxalate 10 mg Tablet PO SCH (08:34)
[2024-09-16] MEDS: Insulin Glargine 30 UNITS/0.3 ML VIAL SC SCH (09:30)
[2024-09-16] MEDS ORDERED: hydrALAZINE 20 MG/ML VIAL SLOW IVP PRN (12:44)
[2024-09-16] MEDS: HumaLOG 300 UNITS/3 ML VIAL SC SCH (12:55)
[2024-09-16] MEDS: Warfarin Sodium 2.5 MG TAB PO SCH (16:05)
[2024-09-16] MEDS: Ferrous Sulfate 325 MG TAB PO SCH (16:05)
[2024-09-16] MEDS: Multivitamin W/ Minerals 1 TAB PO SCH (20:03)
[2024-09-16] MEDS ORDERED: Insulin Glargine 30 UNITS/0.3 ML VIAL SC SCH (21:00)
[2024-09-17 03:57] LABS: #Basophils 0.04 10x3/uL (0.0-0.2); %Basophils 0.6 % (0.0-1.0); %Eosinophils 1.7 % (0.0-10.0); %Lymphocytes 24.5 % (21.0-51.0); %Monocytes 8.5 % (0.0-10.0); %Neutrophils 64.4 % (42.0-75.0); Hematocrit 38.2 % (36.0-47.0); Hemoglobin 12.5 g/dL (12.0-16.0); Mean Corpuscular HGB CONC 32.7 g/dL (32.0-36.0); Mean Corpuscular Hemoglobin 28.7 pg (27.0-31.0); Mean Corpuscular Volume 87.6 fL (78.0-98.0); Mean Platelet Volume 10.8 fL (7.4-10.4); Platelet Count 224 10x3/uL (130-400); RBC Distribution Width 13.5 % (11.5-14.5); Red Blood Cell (RBC) Count 4.36 mill/uL (4.20-5.40)
[2024-09-17 04:16] LABS: INR-International Normal Ratio 2.6; Prothrombin Time 27.9 sec (12.0-14.7)
[2024-09-17 04:17] LABS: Anion Gap 16 mmol/L (10-20); BUN (Urea Nitrogen) 35 mg/dL (9.8-20.1); Calc. Creatinine Clearance 55 mL/min (70-130); Calcium 9.9 mg/dL (7.8-10.44); Carbon Dioxide 29 mmol/L (23-31); Chloride 94 mmol/L (98-107); Estimated GFR 34; Glucose 267 mg/dL (83-110); Sodium 135 mmol/L (136-145)
[2024-09-17] MEDS: Insulin Lispro 100 UNIT/ML 10 ML VIAL SC SCH (09:07)
[2024-09-17] MEDS: Insulin Glargine 30 UNITS/0.3 ML VIAL SC SCH (09:07)
[2024-09-17 12:18] VITALS: BP 158/74; TEMP 97.6
[2024-09-17] MEDS ORDERED: Warfarin Sodium 3.75 MG HALF.TAB PO SCH (17:00)
== END 2024-09-17 16:23 | disposition home or self-care (01) ==
LOC: 2SE 04:08
PROVIDERS: ADMIT Student in an Organized Health Care Education/Training Program; ATTEND Family Medicine
DX: G93.41 Metabolic encephalopathy (principal); G40.909 Epilepsy, unspecified, not intractable, without status epilepticus; E11.65 Type 2 diabetes mellitus with hyperglycemia; E11.22 Type 2 diabetes mellitus with diabetic chronic kidney disease; I13.0 Hypertensive heart and chronic kidney disease with heart failure and stage 1 through stage 4 chronic kidney disease, or unspecified chronic kidney disease; I50.22 Chronic systolic (congestive) heart failure; N18.30 Chronic kidney disease, stage 3 unspecified; I48.0 Paroxysmal atrial fibrillation; I25.10 Atherosclerotic heart disease of native coronary artery without angina pectoris; J44.9 Chronic obstructive pulmonary disease, unspecified; Z95.0 Presence of cardiac pacemaker; Z98.890 Other specified postprocedural states; Z91.041 Radiographic dye allergy status; Z88.0 Allergy status to penicillin; Z88.2 Allergy status to sulfonamides; Z88.8 Allergy status to other drugs, medicaments and biological substances; Z79.01 Long term (current) use of anticoagulants; Z79.4 Long term (current) use of insulin; Z79.899 Other long term (current) drug therapy
CPT/HCPCS: 80048; 80053; 82962 ×2; 83036; 85025 ×2; 85610 ×2; G0378 ×2; J1815 ×2; Q0162; 36415; 36416